=== PATIENT | female | born 1990 | race Caucasian/White ===

== ENCOUNTER 2016-11-22 17:05 | Emergency (ER) | payer BC ==
[2016-11-22 17:23] VITALS: BP 131/108
[2016-11-22] MEDS ORDERED: NS 0.9% 1000 ML* 1,000 ML IV ONE (17:35)
[2016-11-22] MEDS ORDERED: Ondansetron INJ* 2 MG/ML VIAL IV ONE (17:36)
--- NOTE | 2016-11-22 17:39 | UC ---
UC General HPI - HPI Summary HPI Summary: patient has hx of chrones and colon cancer. She had 2 days of nausea and diarrhea which has subsided. but is still slightly nauseaated and weak, not able to eat or drink much. - History of Current Complaint Chief Complaint: UCGI Stated Complaint: POSSIBLE DEHYDRATION Time Seen by Provider: 11/22/16 17:31 Hx Obtained From: Patient Onset/Duration: Sudden Onset, Lasting Days Onset Severity: Moderate Current Severity: Moderate Pain Intensity: 6 Pain Location at: epigastic Associated Signs & Symptoms: Positive: Abdominal Pain, Diarrhea, Headache, Weakness - Allergy/Home Medications Allergies/Adverse Reactions: Allergies Allergy/AdvReac Type Severity Reaction Status Date / Time Penicillins Allergy Unknown Verified 11/22/16 17:18 Reaction Details PMH/Surg Hx/FS Hx/Imm Hx Previously Healthy: Yes - Surgical History Surgical History: Yes Surgery Procedure, Year, and Place: colon surgery - Family History Known Family History: Negative: Hypertension, Respiratory Disease - Social History Alcohol Use: None Substance Use Type: None Smoking Status (MU): Never Smoked Tobacco Review of Systems Constitutional: Fatigue Skin: Negative Eyes: Negative ENT: Negative Respiratory: Negative Cardiovascular: Negative Gastrointestinal: Abdominal Pain, Vomiting, Diarrhea Genitourinary: Negative Motor: Negative Neurovascular: Negative Musculoskeletal: Negative Neurological: Headache Psychological: Negative All Other Systems Reviewed And Are Negative: Yes Physical Exam Triage Information Reviewed: Yes Appearance: Well-Nourished, Ill-Appearing, Pain Distress Vital Signs: Initial Vital Signs Temp 96.7 F 11/22/16 17:19 Pulse 147 11/22/16 17:19 Resp 18 11/22/16 17:19 BP 131/108 11/22/16 17:19 Pulse Ox 98 11/22/16 17:19 Vital Signs Reviewed: Yes Eye Exam: Normal Eyes: Positive: Conjunctiva Clear ENT Exam: Normal ENT: Positive: Hearing grossly normal, Pharyngeal erythema, TMs normal Dental Exam: Normal Neck exam: Normal Neck: Positive: Supple, Nontender, No Lymphadenopathy Respiratory Exam: Normal Respiratory: Positive: Chest non-tender, Lungs clear, Normal breath sounds Cardiovascular Exam: Normal Cardiovascular: Positive: RRR, No Murmur, Pulses Normal Abdomen Description: Positive: Nontender, Soft - no cva tenderness, no palpable masses, no distension or guarding, no rebound tenderness Bowel Sounds: Positive: Hyperactive Musculoskeletal Exam: Normal Musculoskeletal: Positive: Strength Intact, ROM Intact, No Edema Neurological Exam: Normal Neurological: Positive: Alert, Muscle Tone Normal Psychological Exam: Normal Skin Exam: Normal Re-Evaluation - Re-Evaluation First Eval Change: Improved - less nauseas feeling somewhat better, still fatigued Course/Dx - Course Course Of Treatment: hx obtained, exam performed, iv fluids and iv zofran given for dehydration, with improved results. medication prescribed. - Differential Dx - Multi-Symptom Provider Diagnoses: dehydration. diarrhea Discharge - Discharge Plan Condition: Stable Disposition: HOME Prescriptions: Ondansetron TAB* [Zofran Tab*] 4 mg PO Q6H PRN #28 tab PRN Reason: Nausea Patient Education Materials: Dehydration (ED) Forms: *Work Release Referrals: Milad Lerner MD [Primary Care Provider] - Additional Instructions: gradually increase fluid intact. get plenty of fluids, follow up with your primary physcian if not feeling increasingly better over the nexy 48 hours. use the zofran to help tolerate food and liquid.
== END 2016-11-22 19:08 | disposition home or self-care (01) ==
LOC: UCCORT 17:05
DX: E86.0 Dehydration (principal); R19.7 Diarrhea, unspecified; K50.90 Crohn's disease, unspecified, without complications; Z85.038 Personal history of other malignant neoplasm of large intestine; Z88.0 Allergy status to penicillin
CPT/HCPCS: 96361; 96374; 99202; G0463; J2405

== ENCOUNTER 2017-08-14 20:44 | Emergency (ER) | payer BC ==
--- NOTE | 2017-08-14 21:03 | UC ---
Throat Pain/Nasal Jose HPI - HPI Summary HPI Summary: 26 YEAR OLD FEMALE WITH A HISTORY OF COLON CANCER PRESENTS WITH COMPLAINS OF SINUSITIS AND RUQ PAIN. - History of Current Complaint Stated Complaint: SINUS/STOMACH ACHE Time Seen by Provider: 08/14/17 21:03 Hx Obtained From: Patient Hx Last Menstrual Period: 11/03/16 Onset/Duration: Sudden Onset Severity: Moderate Pain Scale Used: 0-10 Numeric - 5 - Allergies/Home Medications Allergies/Adverse Reactions: Allergies Allergy/AdvReac Type Severity Reaction Status Date / Time Penicillins Allergy Unknown Verified 08/14/17 21:06 Reaction Details PMH/Surg Hx/FS Hx/Imm Hx Previously Healthy: Yes - Surgical History Surgical History: Yes Surgery Procedure, Year, and Place: colon surgery - Family History Known Family History: Negative: Hypertension, Respiratory Disease - Social History Alcohol Use: None Substance Use Type: None Smoking Status (MU): Never Smoked Tobacco Review of Systems Constitutional: Negative Skin: Negative Eyes: Negative ENT: Sore Throat, Nasal Discharge, Sinus Congestion Respiratory: Negative Cardiovascular: Negative Gastrointestinal: Abdominal Pain Genitourinary: Negative Motor: Negative Neurovascular: Negative Musculoskeletal: Negative Neurological: Negative Psychological: Negative All Other Systems Reviewed And Are Negative: Yes Physical Exam Triage Information Reviewed: Yes Vital Signs Reviewed: Yes Eye Exam: Normal ENT: Positive: Pharyngeal erythema, Nasal congestion, Nasal drainage Dental Exam: Normal Neck exam: Normal Neck: Positive: 1 Respiratory Exam: Normal Cardiovascular Exam: Normal Abdominal Exam: Normal Abdomen Description: Positive: Other: - RUQ PAIN Musculoskeletal Exam: Normal Neurological Exam: Normal Psychological Exam: Normal Skin Exam: Normal Throat Pain/Nasal Course/Dx - Differential Dx/Diagnosis Provider Diagnoses: SINUSITIS. RUQ PAIN Discharge - Discharge Plan Condition: Stable Disposition: HOME Prescriptions: Azithromyxin [place] (NF) [Z-[place] (Zithromax) 250 mg tabs #6] 2 tab PO .TODAY, THEN 1 DAILY #6 tab Fluticasone NASAL SPRAY 50MCG* [Flonase NASAL SPRAY 50MCG*] 2 spray BOTH NARES DAILY #1 btl Patient Education Materials: Sinusitis (ED), Abdominal Pain (ED) Referrals: Milad Lerner MD [Primary Care Provider] -
[2017-08-14 21:06] VITALS: BP 131/84
[2017-08-14] MEDS ORDERED: Azithromycin TAB* 250 MG PO ONE (21:39)
[2017-08-15 11:13] LABS: Hematocrit 43 % (35-47); Hemoglobin 14.6 g/dl (12.0-16.0); Mean Corpuscular HGB Conc 34 g/dl (31-36); Mean Corpuscular Hemoglobin 28 pg (27-31); Mean Corpuscular Volume 83 fL (80-97); Mean Platelet Volume 7 um3 (7.4-10.4); Red Blood Count 5.17 10^6/ul (4.0-5.4); Red Cell Distribution Width 13 % (10.5-15); White Blood Count 13.5 10^3/ul (3.5-10.8)
[2017-08-15 11:17] LABS: Add Diff/Slide Review? Slide Review Added; Comments Flag Yes
[2017-08-15 11:20] LABS: Albumin 4.8 g/dL (3.2-5.2); BUN/Creatinine Ratio 11.6 (8-20); Calcium 9.9 mg/dL (8.6-10.3); EGFR Non-African American 78.6 (>60); Globulin 2.9 g/dL (2-4); Potassium 4.3 mmol/L (3.5-5.0); Total Bilirubin 0.6 mg/dL (0.2-1.0); Total Protein 7.7 g/dL (6.4-8.9)
[2017-08-15 18:59] LABS: Eosinophils % 1 % (0-6); Immature Granulocytes 9 % (0-9); Neutrophil % 72 % (38-83); RBC Morphology Normal (Normal)
--- NOTE | 2017-08-16 07:18 | UC ---
Progress - Progress Note Progress Note: Please call and confirm that she is doing better. wbc elevated mildly.
== END 2017-08-14 21:37 | disposition home or self-care (01) ==
LOC: UCCORT 20:44
DX: J32.9 Chronic sinusitis, unspecified (principal); R10.11 Right upper quadrant pain; Z85.038 Personal history of other malignant neoplasm of large intestine; Z88.0 Allergy status to penicillin
CPT/HCPCS: 36415; 80053; 82150; 83690; 85025; 99212; A9270-GY; G0463

== ENCOUNTER 2019-05-10 19:30 | Emergency (ER) | payer BC ==
[2019-05-10 19:48] VITALS: BP 139/82
--- NOTE | 2019-05-10 20:44 | UC ---
Complaint Female HPI - HPI Summary HPI Summary: The patient drove up from [facility] and she has had some urinary frequency however no other symptoms and she thought she might have a urinary tract infection. She does have a history of colon cancer in 2010 for which she received surgery, had an ileostomy, had radiation and chemotherapy treatment. She sees her GI specialist yearly for checkups. - History Of Current Complaint Chief Complaint: UCGU Stated Complaint: URINARY Time Seen by Provider: 05/10/19 20:15 Hx Obtained From: Patient Hx Last Menstrual Period: 04/24/19 ?: No Onset/Duration: Gradual Onset Timing: Intermittent Severity Initially: Mild Severity Currently: Mild Pain Intensity: 2 Character: Burning Aggravating Factor(s): Other - Patient has had urinary frequency. She states a couple times today when she urinated she had a little bit of burning at the end of urination. She denies any abnormal vaginal discharge. Associated Signs And Symptoms: Positive: Back Pain - Patient has had some mild back pain.. Negative: Vaginal Bleeding/Discharge, Vaginal Discharge, Nausea - Allergies/Home Medications Allergies/Adverse Reactions: Allergies Allergy/AdvReac Type Severity Reaction Status Date / Time Penicillins Allergy Unknown Verified 05/10/19 19:48 Reaction Details Home Medications: Home Medications Cetirizine* [ZyrTEC 10 MG TAB*] 10 mg PO DAILY 05/10/19 [History Confirmed 05/10] Esomeprazole Magnesium [Nexium 24Hr] 20 mg PO DAILY 05/10/19 [History Confirmed 05/10/19] PMH/Surg Hx/FS Hx/Imm Hx Previously Healthy: Yes Cancer History: Colorectal Cancer - She had surgery and was treated with chemotherapy and radiation in 2010. - Surgical History Surgical History: Yes Surgery Procedure, Year, and Place: colon surgery - Family History Known Family History: Negative: Hypertension, Respiratory Disease - Social History Alcohol Use: None Substance Use Type: None Smoking Status (MU): Never Smoked Tobacco - Immunization History Most Recent Influenza Vaccination: no Review of Systems All Other Systems Reviewed And Are Negative: Yes Gastrointestinal: Positive: Abdominal Pain - Patient states she has just some soreness across her lower abdomen. She does have irregular periods since she had the chemotherapy and radiation therapy. Denies any vomiting diarrhea or nausea. Genitourinary: Positive: Frequency - Patient mostly had urinary frequency today as she was traveling she states that at the very end of urination a couple times she did have a little burning. She denies any abnormal vaginal discharge.. Negative: Vaginal/Penile Burning, Vaginal/Penile Itching, Vaginal/ Penile Discharge, Vaginal/Penile Pain, Vaginal/Penile Tenderness Is Patient Immunocompromised?: No Physical Exam Triage Information Reviewed: Yes Appearance: Well-Appearing, No Pain Distress, Well-Nourished Vital Signs: Initial Vital Signs Temp 98.5 F 05/10/19 19:45 Pulse 89 05/10/19 19:45 Resp 16 05/10/19 19:45 BP 139/82 05/10/19 19:45 Pulse Ox 100 05/10/19 19:45 Vital Signs Reviewed: Yes Eyes: Positive: Conjunctiva Clear ENT: Positive: Hearing grossly normal, Pharynx normal, TMs normal, Uvula midline Neck: Positive: Supple, Nontender, No Lymphadenopathy Respiratory: Positive: Lungs clear, Normal breath sounds, No respiratory distress, No accessory muscle use Cardiovascular: Positive: RRR, No Murmur, Pulses Normal, Brisk Capillary Refill Abdomen Description: Positive: Nontender, No Organomegaly, Soft. Negative: CVA Tenderness (R), CVA Tenderness (L), Distended, Guarding, Hepatomegaly, Splenomegaly Bowel Sounds: Positive: Present Musculoskeletal Exam: Normal Neurological Exam: Normal Psychological Exam: Normal Skin Exam: Normal Complaint Female Dx - Course Course Of Treatment: Urinalysis was negative. The patient is in the area for one week and then she will be headed back to [place]. She does not have establish care with a GI specialist in [place] however she states that her last checkup was one year ago and everything has been normal every year. She did state that her menstrual periods have been irregular since she had chemotherapy and radiation. She still has a specialist in [place] and I advised her that if she continues to have the abdominal discomfort to follow-up with a specialist before she leaves the area. She is in agreement with this plan of action. If she develops fever , chills, worsening back pain, vomiting or worsening abdominal pain she is to go to the emergency room. - Differential Dx/Diagnosis Provider Diagnosis: Dysuria, Abdominal pain Discharge - Sign-Out/Discharge Documenting (check all that apply): Patient Departure All imaging exams completed and their final reports reviewed: No Studies - Discharge Plan Condition: Fair Disposition: HOME Patient Education Materials: Dysuria (ED) Referrals: No Primary Care Phys,NOPCP [Primary Care Provider] - Additional Instructions: Increase fluids, follow-up with your primary care provider as needed. If you develop fever, chills, worsening symptoms then go to the emergency room for treatment. Follow-up with your GI doctor as we discussed. - Billing Disposition and Condition Condition: FAIR Disposition: Home - Attestation Statements Provider Attestation: Per institutional requirements, I have reviewed the chart, however, I was not consulted specifically or made aware of this patient by the midlevel provider. I did not personally evaluate, interact with , or disposition this patient.
== END 2019-05-10 20:48 | disposition home or self-care (01) ==
LOC: UCCORT 19:30
DX: R30.0 Dysuria (principal); R10.9 Unspecified abdominal pain; Z85.038 Personal history of other malignant neoplasm of large intestine; Z92.3 Personal history of irradiation; Z92.21 Personal history of antineoplastic chemotherapy
CPT/HCPCS: 81003; 99211; G0463